=== PATIENT | female | born 1975 | race Caucasian/White ===

== ENCOUNTER 2017-05-03 12:19 | Emergency (ER) | payer MEDICAID ==
[~2017-05-03 12:19] MED LIST: ALPRAZOLAM PO; ASPIRIN PO; ATENOLOL PO; ATIVAN PO; BACLOFEN20 MG PO; CELEXA PO; CYMBALTA PO; FENOGLIDE40 MG PO; FUROSEMIDE40 MG PO; HALDOL PO; KETOPROFEN PO; KLONOPIN1 MG PO; MAGNESIUM250 M1 PO; MELATONIN; MELLARIL PO; NICOTINE T1 PATCH .2 TOP; PHENERGAN PO; PHENTERMINE HCL30 MG PO; PROZAC PO; REMERON30 MG PO; TRAZODONE PO; ZESTORETIC 20/21 TAB PO; ZOCOR PO
[2017-08-18] MEDS ORDERED: BACLOFEN10 MG PO (16:08)
[2017-08-18] MEDS ORDERED: HUMULIN N100 UNIT/1 SUBQ (16:09)
[2017-08-18] MEDS ORDERED: HUMULIN R100 UNIT/1 SUBQ (16:10)
[2017-08-18] MEDS ORDERED: METFORMIN HCL1000 M2 (16:11)
[2017-08-18] MEDS ORDERED: CARAFATE1 GM PO (16:12)
[2017-08-18] MEDS ORDERED: PRILOSEC PO (16:12)
[2017-08-18] MEDS ORDERED: TOPAMAX PO (16:13)
[2017-08-18] MEDS ORDERED: DOCUSATE SODIU100 MG PO (16:14)
[2017-08-18] MEDS ORDERED: NORTRIPTYLINE H50 MG PO (16:14)
[2017-08-18] MEDS ORDERED: SYNTHROID125 PO (16:15)
== END 2017-05-03 14:05 | disposition home or self-care (01) ==
LOC: SED 12:19
DX: R10.13 Epigastric pain (principal); K21.9 Gastro-esophageal reflux disease without esophagitis; E03.9 Hypothyroidism, unspecified; E11.9 Type 2 diabetes mellitus without complications; G40.909 Epilepsy, unspecified, not intractable, without status epilepticus; E10.9 Type 1 diabetes mellitus without complications; I10 Essential (primary) hypertension; G35 Multiple sclerosis; F17.200 Nicotine dependence, unspecified, uncomplicated; Z90.49 Acquired absence of other specified parts of digestive tract; Z90.710 Acquired absence of both cervix and uterus
CPT/HCPCS: 82947; 99283

== ENCOUNTER 2017-07-11 13:37 | Emergency (ER) | payer MEDICAID ==
[~2017-07-11] VITALS: Ht 165.1 cm; Wt 86.2 kg
--- NOTE | ~2017-07-11 | CT4 ---
[facility] A Service of [facility] RADIOLOGY TEXT RESULTS PATIENT: VILLA MORRISON LOCATION: SED : [birth year] UNIT #: [id number] AGE: [address]: Colin Arreola MD SEX: F ORDER DR: [id number] [place] [id number] E MR#: [id number] Acc #: [id number] NAME: VILLA MORRISON : 1975 SEX: F STUDY DATE/TIME: 07/11/2017 14:33 UNIT: SED ROOM: STUDY DESCRIPTION: CT Abd and Pelv Wo Cont Attending Physician: Colin Arreola M.D. Ordering Physician: Colin Arreola M.D. MEDICAL IMAGING REPORT This report is preliminary unless electronic signature is present. EXAM CT abdomen and pelvis without contrast DATE 07/11/2017 HISTORY Blood in the urine with right flank pain for 2 days. Diabetes. COMPARISON Acute abdominal series 07/10/2006, CT abdomen and pelvis 04/20/2006. PROCEDURE 3 mm noncontrast axial images through the abdomen and pelvis. Enteric contrast not administered. Sagittal and coronal reformatted images were obtained. This CT exam was performed with one or more of the following radiation dose reduction techniques: automatic exposure control, adjustment of mA and/or kV according to patient size, and iterative reconstruction. FINDINGS Abdomen findings: No renal or ureteral stone, hydronephrosis or hydroureter is seen. Kidneys have normal noncontrast appearance. Cholecystectomy changes are present. Lung bases are clear. The liver, spleen, pancreas and adrenal glands are normal. Unopacified bowel appears nonthickened and noninflamed and the appendix is normal. Pelvis findings: Complex structure with intervening cystic foci demonstrated in the right carlos pelvis, thought to represent the patient's right ovary. It measures 3.6 x 3.1 cm. Similar findings were documented on the 04/20/2006 examination, measuring up to 3.6 x 2.8 cm on that exam. No pelvic free fluid is identified. Urinary bladder and rectum are [facility]. [facility] A Service of [facility] RADIOLOGY TEXT RESULTS PATIENT: VILLA MORRISON LOCATION: [facility] [place] : [birth year] UNIT #: [id number] AGE: [address]: Colin Arreola MD SEX: F ORDER DR: normal. Small phleboliths in the pelvis. Hysterectomy. 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 IMPRESSION 1. No urinary tract stone or hydronephrosis. Unremarkable noncontrast appearance of the kidneys, ureters and urinary bladder. 2. Complex cystic type lesion in the right adnexa, thought to represent the patients right ovary containing multiple small cysts or follicles. An aggregate that measures up to 3.6 cm, similar to the 04/20/2006 examination, in keeping with a benign finding. 3. The appendix is normal. 4. Hysterectomy. 5. 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 6. Cholecystectomy. Dictated by... Tatyana Ramirez M.D. THIS IS AN ELECTRONICALLY VERIFIED REPORT Tatyana Ramirez M.D. at 07/12/2017 2:03 PM [facility]/krishan TD: 07/11/2017 21:17 JOB #: [id number] MEDICAL IMAGING REPORT Page 1 of 1
[2017-07-11 14:13] LABS: URINE SOURCE CLEAN CATCH
[2017-07-11 14:15] LABS: URINE APPEARANCE CLEAR; URINE BILIRUBIN NEG (NEG); URINE BLOOD 1+ (NEG); URINE COLOR YELLOW; URINE GLUCOSE NEG (NORM); URINE KETONE NEG (NEG); URINE LEUKOCYTE ESTERASE NEG (NEG); URINE NITRATE NEG (NEG); URINE PH 5.5 (5-8); URINE PROTEIN NEG (NEG); URINE SPECIFIC GRAVITY 1.025 (1.003-1.035); URINE UROBILINOGEN 0.2 MG/DL (NORM)
[2017-07-11 14:17] LABS: MICRO INDICATED? YES
[2017-07-11 14:20] LABS: CULTURE INDICATED? YES; URINE BACTERIA 1+ (NEG); URINE SQUAMOUS EPITHELIAL CELL OCCAS /[HPF]; URINE WBC 0-2 /[HPF] (0-5); URINE YEAST PRESENT
[2017-07-11 15:00] LABS: BASOPHIL% 0.6 % (0-2.5); EOSINOPHIL# 0.3 X10e3 (0-0.7); EOSINOPHIL% 4.2 % (0.0-7.0); HEMATOCRIT 39.9 % (35.0-45.0); HEMOGLOBIN 13.6 gm/dL (12.0-16.0); LYMPHOCYTE# 2.7 X10e3 (1.0-3.5); LYMPHOCYTE% 34.7 % (17.0-45.0); MEAN PLATELET VOLUME 8.7 FL (6.5-11.5); MONOCYTE# 0.5 X10e3 (0-1.0); MONOCYTE% 6.4 % (3.0-12.0); NEUTROPHIL# 4.2 X10e3 (1.5-7.1); NEUTROPHIL% 54.1 % (40-75); PLATELET COUNT 190 X10e3 (140-420); RED BLOOD COUNT 4.25 X10e (3.90-5.30); RED CELL DISTRIBUTION WIDTH 13.5 % (11.0-15.5); WHITE BLOOD COUNT 7.7 X10e3 (4.0-10.5)
[2017-07-11 15:07] LABS: DIFF IND NO
[2017-07-11 15:07] LABS: AMPHETAMINE NEG (NEG); BARBITURATES NEG (NEG); BENZODIAZEPINES NEG (NEG); COCAINE NEG (NEG); MARIJUANA NEG (NEG); OPIATES NEG (NEG); TRICYCLIC ANTIDEPRESSANTS POS (NEG); U METHADONE NEG (NEG)
[2017-07-11 15:17] LABS: ALBUMIN SERUM 4.2 g/dL (3.5-5.0); BILIRUBIN,TOTAL 0.2 mg/dL (0.2-2.0); BUN/CREATININE RATIO 14.28; CALCIUM SERUM 8.9 mg/dL (8.4-10.2); CREATININE SERUM 0.7 mg/dL (0.6-1.4); GLOM FILT RATE Estimated 106.1 mL/min (>60); POTASSIUM 3.6 mmol/L (3.5-5.1); PROTEIN TOTAL SERUM 7.1 g/dL (6.0-8.3)
[2017-08-18] MEDS ORDERED: BACLOFEN10 MG PO (16:08)
[2017-08-18] MEDS ORDERED: HUMULIN N100 UNIT/1 SUBQ (16:09)
[2017-08-18] MEDS ORDERED: HUMULIN R100 UNIT/1 SUBQ (16:10)
[2017-08-18] MEDS ORDERED: METFORMIN HCL1000 M2 (16:11)
[2017-08-18] MEDS ORDERED: PRILOSEC PO (16:12)
[2017-08-18] MEDS ORDERED: CARAFATE1 GM PO (16:12)
[2017-08-18] MEDS ORDERED: TOPAMAX PO (16:13)
[2017-08-18] MEDS ORDERED: DOCUSATE SODIU100 MG PO (16:14)
[2017-08-18] MEDS ORDERED: NORTRIPTYLINE H50 MG PO (16:14)
[2017-08-18] MEDS ORDERED: SYNTHROID125 PO (16:15)
== END 2017-07-11 16:45 | disposition home or self-care (01) ==
LOC: SED 13:37
PROVIDERS: Emergency Medicine
DX: N83.201 Unspecified ovarian cyst, right side (principal); N39.0 Urinary tract infection, site not specified; K66.0 Peritoneal adhesions (postprocedural) (postinfection); F31.9 Bipolar disorder, unspecified; Z90.710 Acquired absence of both cervix and uterus; Z90.49 Acquired absence of other specified parts of digestive tract; Z88.5 Allergy status to narcotic agent; Z88.0 Allergy status to penicillin; Z91.018 Allergy to other foods
CPT/HCPCS: 36415; 74176; 80053; 80307; 81003; 82010; 84703; 85025; 87086; 96361; 96374; 96375; 99284; J1170; J2405